=== PATIENT | female | born 2000 | race African-American/Black ===

== ENCOUNTER 2023-05-29 19:07 | Emergency (ER) | payer OTHER, BC ==
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
[2023-05-29 22:15] VITALS: BP 121/90; TEMP 98.3; O2SAT 100
== END 2023-05-29 21:15 | disposition home or self-care (01) ==
LOC: ER 19:07
DX: S00.83XA Contusion of other part of head, initial encounter (principal); V49.40XA Driver injured in collision with unspecified motor vehicles in traffic accident, initial encounter; R51.9 Headache, unspecified
CPT/HCPCS: 70450; 72125

== ENCOUNTER 2024-11-05 04:44 | Emergency (ER) | payer SELFPAY ==
[2024-11-05] MEDS ORDERED: ONDANSETRON 4 MG/2 ML VIAL ONE (05:30)
[2024-11-05] MEDS ORDERED: LORazepam 2 MG/ML VIAL ONE (05:31)
[2024-11-05] MEDS ORDERED: NA CHLORIDE 0.9% 1,000 ML ONE (05:32)
[2024-11-05] MEDS ORDERED: THIAMINE 200 MG/2 ML INJ ONE (05:32)
[2024-11-05 06:23] LABS: Absolute Lymphocytes (CBC) 1.3 K/uL (0.7-4.9); Absolute Monocytes 0.4 K/uL (0.1-1.3); Absolute Neutrophil 3.8 K/uL (1.8-8.0); Basophils % 0.4 % (0-1.3); Eosinophils % 0.9 % (0-4.4); Hematocrit 46.9 % (36.0-45.0); Hemoglobin 16.2 g/dL (12.0-15.0); Lymphocytes % 23.3 % (15.3-44.8); MCH 31.1 pg (27.0-35.0); MCHC 34.4 g/dL (32.0-36.0); MCV 90.3 fL (80-100); MPV 7.4 fL (7.6-11.3); Monocytes % 7.7 % (3.3-12.3); Neutrophils % 67.7 % (41.7-73.7); Nucleated Red Blood Cells % 0.1 % (0-0); Platelets 268 thou/uL (152-406); RBC Red Blood Cell Count 5.19 M/uL (3.86-4.86); Red Cell Distribution Width 12.8 % (12.1-15.2)
[2024-11-05 06:34] LABS: ALT/SGPT 22 U/L (13-56); AST/SGOT 20 U/L (15-37); Albumin 4.3 g/dL (3.4-5.0); Alkaline Phosphatase 96 U/L (45-117); Anion Gap 12.3 mEq/L (5.0-15.0); BUN Blood Urea Nitrogen 17 mg/dL (7-18); Bicarbonate 26 mEq/L (21-32); Bilirubin Direct 0.4 mg/dL (0-0.2); Bilirubin Indirect, Calculated 0.6 mg/dL (0.2-0.8); Globulin 4.3 g/dL (2.3-3.5); Glomerular Filtration Rate 93 ml/min (=/>90); Glucose Level 85 mg/dL (74-106); Potassium 3.3 mEq/L (3.5-5.1); Protein, Total 8.6 g/dL (6.4-8.2); Sodium Level 136 mEq/L (136-145)
[2024-11-05 06:36] LABS: PT Prothrombin Time 10.6 SECONDS (9.4-12.5); PTT, Activated Partial Thromb 32.7 SECONDS (24.3-36.9); Protime INR 1.01
--- NOTE | 2024-11-05 06:52 | EDPHYS ---
Physician Documentation [facility] Name: Roosevelt Salazar Age: 24 yrs Sex: Female : 2000 Arrival Date: 11/05/2024 Time: 04:44 Bed 7 Private MD: ED Physician Kwame Howe HPI: 11/05 04:50 This 24 yrs old Black Female presents to ER via Unassigned with complaints of Alcohol sp4 Withdrawal. 06:48 24-year-old female reports she was recently an alcoholic binge Saturday through Saturday sp4 where she consumed heavy doses of hard liquor and beer. Patient now has developed tremors, shakes, anxiety, overall feeling unwell.. 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 - Infectious Disease History:: Denies. - Social history:: Smoking status: Patient reports the use of cigarette tobacco products, smokes .25 packs per day, Patient reports use of chewing tobacco. Reported history of juuling and/or vaping. - Family history:: not pertinent. ROS: 06:48 Constitutional: Negative for fever, chills, and weight loss, positive for shakes, sp4 positive for tremors, positive for anxiety, positive for racing heart 06:48 All other systems are negative, Exam: 06:32 Constitutional: This is a well developed, well nourished patient who is awake, alert, sp4 and in no acute distress. Head/Face: Normocephalic, atraumatic. Eyes: Pupils equal round and reactive to light, extra-ocular motions intact. Lids and lashes normal. Conjunctiva and sclera are not injected. Cornea within normal limits. Periorbital areas with no swelling, redness, or edema. ENT: Nares patent. No nasal discharge, no septal abnormalities noted. Tympanic membranes are normal and external auditory canals are clear. Oropharynx with no redness, swelling, or masses, exudates, or evidence of obstruction, uvula midline. Mucous membranes moist. Neck: Trachea midline, no thyromegaly or masses palpated, and no cervical lymphadenopathy. Supple, full range of motion without nuchal rigidity, or vertebral point tenderness. Chest/axilla: Normal chest wall appearance and motion. Nontender with no deformity. No lesions are appreciated. Cardiovascular: Regular rate and rhythm with a normal S1 and S2. No gallops, murmurs, or rubs. Normal PMI, no JVD. No pulse deficits. Respiratory: Lungs have equal breath sounds bilaterally, clear to auscultation and percussion. No rales, rhonchi or wheezes noted. No increased work of breathing, no retractions or nasal flaring. Abdomen/GI: Soft, with normal bowel sounds. No distension or tympany. No guarding or rebound. No evidence of tenderness throughout. Back: No spinal tenderness. No costovertebral tenderness. Skin: Warm, dry with normal turgor. Normal color with no rashes, no lesions, and no evidence of cellulitis. MS/ Extremity: Pulses equal, no cyanosis. Neurovascular intact. Full, normal range of motion. Neuro: Awake and alert, GCS 15, oriented to person, place, time, and situation. Cranial nerves II-XII grossly intact. Motor strength 5/5 in all extremities. Sensory grossly intact. Psych: Awake, alert, with orientation to person, place and time. Behavior, mood, and affect are within normal limits 06:32 ECG was reviewed by the Attending Physician. EKG at 0 619 normal sinus rhythm, normal EKG, rate 84 Vital Signs: 04:54 Weight 70.31 kg; Height 5 ft. 3 in. ; Pain 0/10; vc1 05:05 BP 129 / 73; Pulse 99; Resp 16; Temp 98.6; Pulse Ox 100% on R/A; vc1 06:15 BP 121 / 81; Pulse 83; Resp 19; Pulse Ox 97% on R/A; ay 07:00 BP 121 / 78; Pulse 81; Resp 18; Temp 97.9; Pulse Ox 99% on R/A; ay 04:54 Body Mass Index 27.46 (70.31 kg, 160.02 cm) vc1 04:54 Pain Scale: Adult vc1 Prabha Coma Score: 05:22 Eye Response: spontaneous(4). Motor Response: obeys commands(6). Verbal Response: ay oriented(5). Total: 15. 06:32 Eye Response: spontaneous(4). Motor Response: obeys commands(6). Verbal Response: sp4 oriented(5). Total: 15. MDM: 04:58 Medical Screening Exam initiated sp4 06:48 Differential diagnosis: drug withdrawal. acute psychotic break, depression, psychosis sp4 secondary to non-compliance, Alcohol withdrawal. Data reviewed: vital signs, nurses notes, lab test result(s), EKG. Consideration of Admission/Observation Escalation of care including admission/observation considered. ED course: Patient feels much better after IV fluids and Ativan. Stable for discharge home. Will prescribe Librium for the next 5 days.. 11/05 04:57 Order name: Acetaminophen; Complete Time: 06:44 11/05 04:57 Order name: Basic Metabolic Panel; Complete Time: 06:44 11/05 04:57 Order name: CBC with Diff; Complete Time: 06:32 11/05 04:57 Order name: ETOH Level; Complete Time: 06:44 11/05 04:57 Order name: Hepatic Function; Complete Time: 06:44 11/05 04:57 Order name: PT-INR; Complete Time: 06:44 11/05 04:57 Order name: Ptt, Activated; Complete Time: 06:44 11/05 04:57 Order name: Salicylate; Complete Time: 06:32 11/05 04:57 Order name: EKG; Complete Time: 04:58 11/05 04:57 Order name: EKG - Nurse/Tech; Complete Time: 06:22 11/05 04:57 Order name: IV Saline Lock; Complete Time: 06:00 11/05 04:57 Order name: Labs collected and sent; Complete Time: 06:00 11/05 04:57 Order name: Suicide Screening ([place]); Complete Time: :4 EC:19 Rate is 84 beats/min. Rhythm is regular, Normal Sinus Rhythm. QRS [place] is Normal. ID sp4 interval is normal. QRS interval is normal. QT interval is normal. No Q waves. T waves are Normal. No ST changes noted. Clinical impression: No evidence of ischemia. Interpreted by me. Reviewed by me. Administered Medications: 06: Drug: NS 0.9% IV 1000 ml IV at 1 bolus Per protocol; to be given as a bolus over 60 ay minutes Route: IV; Rate: 1 bolus; Site: left antecubital; 07:15 Follow up: Response: No adverse reaction; IV Status: Completed infusion; IV Intake: ay 1000ml 06: Drug: Ondansetron IVP 4 mg IVP once; over 2 minutes Route: IVP; Site: left antecubital; ay 07:15 Follow up: Response: No adverse reaction ay : Drug: Thiamine IV 100 mg IV at bolus once Route: IV; Rate: bolus; Site: left ay antecubital; 07:15 Follow up: Response: No adverse reaction; IV Status: Completed infusion ay Drug: Ativan IVP 2 mg IVP once Route: IVP; Site: left antecubital; ay 07:16 Follow up: Response: No adverse reaction ay Disposition Summary: 11/05/24 06:51 Discharge Ordered Notes: Location: Home sp4 Problem: new sp4 Symptoms: have improved sp4 Condition: Stable sp4 Diagnosis - Acute alcohol withdrawal sp4 - Alcohol dependence with withdrawal, uncomplicated sp4 Followup: sp4 - With: Private Physician - When: As needed - Reason: Discharge Instructions: - Discharge Summary Sheet sp4 - Alcohol Withdrawal Syndrome sp4 Forms: - Patient Portal Instructions sp4 Prescriptions: - chlordiazepoxide HCl 25 mg Oral capsule - take 1 capsule ORAL route every 12 hours for 5 days PRN alcohol withdrawal; 10 sp4 capsule; Refills: 0, Product Selection Permitted Signatures: Dispatcher [employer] Cindy Olguin RN RN vc1 Kwame Howe MD MD sp4 Jessica Donato RN RN ay Corrections: (The following items were deleted from the chart) 04:59 04:56 Home Meds: ETOH abuse; vc1 vc1
--- NOTE | 2024-11-05 06:52 | ER ---
Nurse's Notes [facility] Name: Roosevelt Salazar Age: 24 yrs Sex: Female : 2000 Arrival Date: 11/05/2024 Time: 04:44 Bed 7 Private MD: Diagnosis: Acute alcohol withdrawal;Alcohol dependence with withdrawal, uncomplicated Presentation: 11/05 04:54 Chief complaint: Patient states: relapsed and binged etoh until Saturday. Now I vc1 have a heavy chest, nightmares, cold sweats, and shaky. Coronavirus screen: Client denies travel out of the [place] in the last 14 days. At this time, the client does not indicate any symptoms associated with coronavirus-19. Ebola Screen: Patient negative for fever greater than or equal to 101.5 degrees Fahrenheit, and additional compatible Ebola Virus Disease symptoms Patient denies exposure to infectious person. Patient denies travel to an Ebola-affected area in the 21 days before illness onset. No symptoms or risks identified at this time. Initial Sepsis Screen: Does the patient meet any 2 criteria? No. Patient's initial sepsis screen is negative. Does the patient have a suspected source of infection? No. Patient's initial sepsis screen is negative. Risk Assessment: Do you want to hurt yourself or someone else? Patient reports no desire to harm self or others. Onset of symptoms was November 04, 2024. Care prior to arrival: None. Activity prior to arrival: None. Mechanism of Injury: No Mechanism of Injury. Transition of care: patient was not received from another setting of care. 04:54 Method Of Arrival: Ambulatory vc1 04:54 Acuity: MONSE 3 vc1 Triage Assessment: 04:59 General: Appears in no apparent distress. uncomfortable, obese, well groomed, well vc1 developed, well nourished, Behavior is cooperative, anxious. General: Reports chills for. Pain: Denies pain. EENT: No deficits noted. No signs and/or symptoms were reported regarding the EENT system. Neuro: Level of Consciousness is awake, alert, obeys commands, Oriented to person, place, time, situation, Appropriate for age. Cardiovascular: Capillary refill < 3 seconds Patient's skin is warm and dry. Respiratory: Airway is patent Respiratory effort is even, unlabored, Respiratory pattern is regular, symmetrical. GI: Abdomen is round non-distended. : No deficits noted. No signs and/or symptoms were reported regarding the genitourinary system. Derm: Skin is intact, is healthy with good turgor, Skin is dry, Skin is normal, Skin temperature is warm. Musculoskeletal: Circulation, motion, and sensation intact. Range of motion: intact in all extremities. 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 - Infectious Disease History:: Denies. - Social history:: Smoking status: Patient reports the use of cigarette tobacco products, smokes .25 packs per day, Patient reports use of chewing tobacco. Reported history of juuling and/or vaping. - Family history:: not pertinent. Screenin:00 [facility] ED Fall Risk Assessment (Adult) History of falling in the last 3 months, vc1 including since admission No falls in past 3 months (0 pts) Confusion or Disorientation No (0 pts) Intoxicated or Sedated No (0 pts) Impaired Gait No (0 pts) Mobility Assist Device Used No (0 pt) Altered Elimination No (0 pt) Score/Fall Risk Level 0 - 2 = Low Risk Oriented to surroundings, Maintained a safe environment, Educated pt \T\ family on fall prevention, incl call for assistance when getting out of bed. Abuse screen: Denies threats or abuse. Nutritional screening: No deficits noted. Tuberculosis screening: No symptoms or risk factors identified. Assessment: 05:22 General: Appears in no apparent distress. comfortable, Behavior is calm, cooperative. ay Pain: Denies pain. Neuro: Level of Consciousness is awake, alert, obeys commands, Oriented to person, place, time, situation, Speech is normal. Cardiovascular: Capillary refill < 3 seconds. Respiratory: Airway is patent Respiratory effort is even, unlabored, Respiratory pattern is regular, symmetrical. GI: Abdomen is flat. : No signs and/or symptoms were reported regarding the genitourinary system. EENT: No signs and/or symptoms were reported regarding the EENT system. Derm: No signs and/or symptoms reported regarding the dermatologic system. 07:14 Reassessment: Patient appears in no apparent distress at this time. Patient and/or ay family updated on plan of care and expected duration. Pain level reassessed. Patient is alert, oriented x 3, equal unlabored respirations, skin warm/dry/pink. Patient states feeling better. Vital Signs: 04:54 Weight 70.31 kg; Height 5 ft. 3 in. ; Pain 0/10; vc1 05:05 BP 129 / 73; Pulse 99; Resp 16; Temp 98.6; Pulse Ox 100% on R/A; vc1 06:15 BP 121 / 81; Pulse 83; Resp 19; Pulse Ox 97% on R/A; ay 07:00 BP 121 / 78; Pulse 81; Resp 18; Temp 97.9; Pulse Ox 99% on R/A; ay 04:54 Body Mass Index 27.46 (70.31 kg, 160.02 cm) vc1 04:54 Pain Scale: Adult vc1 [place] Coma Score: 05:22 Eye Response: spontaneous(4). Motor Response: obeys commands(6). Verbal Response: ay oriented(5). Total: 15. 06:32 Eye Response: spontaneous(4). Motor Response: obeys commands(6). Verbal Response: sp4 oriented(5). Total: 15. ED Course: 04:47 Patient arrived in ED. gm2 04:50 Kwame Howe MD is Attending Physician. sp4 04:56 Triage completed. vc1 05:00 Arm band placed on right wrist. vc1 05:01 Patient has correct armband on for positive identification. Bed in low position. Call vc1 light in reach. Provided Education on: call light. Pulse ox on. NIBP on. 05:22 Jessica Donato, RN is Primary Nurse. ay 05:32 Missed attempt(s): 20 gauge in right wrist. vk 06:00 Acetaminophen Sent. vk 06:00 Basic Metabolic Panel Sent. vk 06:00 CBC with Diff Sent. vk 06:00 ETOH Level Sent. vk 06:00 Hepatic Function Sent. vk 06:00 PT-INR Sent. vk 06:00 Inserted saline lock: 22 gauge in left antecubital area, using aseptic technique. Blood vc1 collected. Flushed with 10 mL NS Missed attempt(s): 20 gauge in right antecubital area. Bleeding controlled, band aid applied, catheter tip intact. 06:01 Ptt, Activated Sent. vk 06:01 Salicylate Sent. vk 07:16 No provider procedures requiring assistance completed. IV discontinued, intact, ay bleeding controlled, No redness/swelling at site. Pressure dressing applied. Administered Medications: 06:22 Drug: NS 0.9% IV 1000 ml IV at 1 bolus Per protocol; to be given as a bolus over 60 ay minutes Route: IV; Rate: 1 bolus; Site: left antecubital; 07:15 Follow up: Response: No adverse reaction; IV Status: Completed infusion; IV Intake: ay 1000ml 06:22 Drug: Ondansetron IVP 4 mg IVP once; over 2 minutes Route: IVP; Site: left antecubital; ay 07:15 Follow up: Response: No adverse reaction ay 06:22 Drug: Thiamine IV 100 mg IV at bolus once Route: IV; Rate: bolus; Site: left ay antecubital; 07:15 Follow up: Response: No adverse reaction; IV Status: Completed infusion ay 06:25 Drug: Ativan IVP 2 mg IVP once Route: IVP; Site: left antecubital; ay 07:16 Follow up: Response: No adverse reaction ay Medication: 05:01 VIS not applicable for this client. vc1 Intake: 07:15 IV: 1000ml; Total: 1000ml. ay Outcome: 06:51 Discharge ordered by MD. stringer 07:16 Discharged to home ambulatory, with friend, ay 07:16 Condition: good 07:16 Discharge instructions given to patient, Instructed on discharge instructions, follow up and referral plans. medication usage, Demonstrated understanding of instructions, follow-up care, medications, Prescriptions given X 1, 07:17 Patient left the ED. ay Signatures: Cindy Saleem RN RN vc1 Kwame Howe MD MD sp4 Michell Zamora gm2 Bella Barriga Awudu, RN RN scotty Corrections: (The following items were deleted from the chart) 04:59 04:56 Home Meds: ETOH abuse; vc1 vc1
[2024-11-05 08:50] VITALS: BP 121/78; TEMP 97.9; O2SAT 99
== END 2024-11-05 07:17 | disposition home or self-care (01) ==
LOC: ER 04:44
DX: F10.239 Alcohol dependence with withdrawal, unspecified (principal); F17.220 Nicotine dependence, chewing tobacco, uncomplicated
CPT/HCPCS: 36415; 80048; 80076; 80143; 80179; 82077; 85025; 85610; 85730; 96365; 96375; 99284; J2405; J3411; J7030